=== PATIENT | female | born 1930 | race Caucasian/White ===

== ENCOUNTER 2016-07-21 07:27 | Emergency (ER) | payer MEDICARE, BC ==
[~2016-07-21 07:27] MED LIST: CATAPRES0.1 MG PO; COREG25 MG PO; K-TAB ER10 MEQ PO; LASIX20 MG PO; LASIX40 MG PO; LISINOPRIL40 MG PO; NORVASC2.5 MG PO; OMEPRAZOLE20 MG PO; PRAVACHOL40 MG PO; ZANTAC150 MG PO
== END 2016-07-21 12:05 | disposition short-term general hospital (02) ==
LOC: ER 07:27
DX: S12.401A Unspecified nondisplaced fracture of fifth cervical vertebra, initial encounter for closed fracture (principal); S02.2XXA Fracture of nasal bones, initial encounter for closed fracture; S01.01XA Laceration without foreign body of scalp, initial encounter; S70.02XA Contusion of left hip, initial encounter; S60.221A Contusion of right hand, initial encounter; R09.02 Hypoxemia; R11.2 Nausea with vomiting, unspecified; H91.91 Unspecified hearing loss, right ear; I25.2 Old myocardial infarction; I11.0 Hypertensive heart disease with heart failure; I50.30 Unspecified diastolic (congestive) heart failure; E78.5 Hyperlipidemia, unspecified; Z96.651 Presence of right artificial knee joint; Z96.641 Presence of right artificial hip joint; Z86.73 Personal history of transient ischemic attack (TIA), and cerebral infarction without residual deficits; Z79.82 Long term (current) use of aspirin; Z79.899 Other long term (current) drug therapy; Z88.0 Allergy status to penicillin; Z23 Encounter for immunization; W19.XXXA Unspecified fall, initial encounter
CPT/HCPCS: 36415; 51702; 73502-LT; 90471; 96374; 96375; 96376; J0360; J1940

== ENCOUNTER 2016-08-12 15:30 | Inpatient (IN) | payer MEDICARE, BC ==
[~2016-08-12] VITALS: Ht 160 cm; Wt 68.9 kg
== END 2016-08-16 17:40 | disposition hospice, home (50) | DRG 155 ==
LOC: ER 15:30 → MED 23:18
PROVIDERS: ADMIT Internal Medicine
DX: K11.20 Sialoadenitis, unspecified (principal); N39.0 Urinary tract infection, site not specified; E46 Unspecified protein-calorie malnutrition; S12.400A Unspecified displaced fracture of fifth cervical vertebra, initial encounter for closed fracture; B95.2 Enterococcus as the cause of diseases classified elsewhere; R13.10 Dysphagia, unspecified; Z68.25 Body mass index [BMI] 25.0-25.9, adult; I10 Essential (primary) hypertension; Z87.01 Personal history of pneumonia (recurrent); I25.10 Atherosclerotic heart disease of native coronary artery without angina pectoris; Z66 Do not resuscitate; Z79.82 Long term (current) use of aspirin; Z79.899 Other long term (current) drug therapy; Z96.641 Presence of right artificial hip joint; Z83.3 Family history of diabetes mellitus; Z82.49 Family history of ischemic heart disease and other diseases of the circulatory system; Z93.1 Gastrostomy status; F03.90 Unspecified dementia, unspecified severity, without behavioral disturbance, psychotic disturbance, mood disturbance, and anxiety; W19.XXXA Unspecified fall, initial encounter; Y92.9 Unspecified place or not applicable
CPT/HCPCS: 36415; 92610; 97162-GP; 97166; J0696; J1650

== ENCOUNTER 2016-08-12 15:30 | Emergency (ER) | payer MEDICARE, BC | END 2016-08-12 23:17 | disposition critical access hospital (66) | LOC: ER 15:30 | DX: K11.20 Sialoadenitis, unspecified (principal); N39.0 Urinary tract infection, site not specified; E86.0 Dehydration; I10 Essential (primary) hypertension; I25.2 Old myocardial infarction; Z96.651 Presence of right artificial knee joint; Z86.73 Personal history of transient ischemic attack (TIA), and cerebral infarction without residual deficits; Z96.641 Presence of right artificial hip joint; Z79.82 Long term (current) use of aspirin; Z79.899 Other long term (current) drug therapy; Z88.0 Allergy status to penicillin | CPT/HCPCS: 36415; 96361; 96365; 96375; 96376; J0696 ==